=== PATIENT | male | born 1960 | race Caucasian/White ===

== ENCOUNTER 2017-06-21 20:18 | Emergency (ER) | payer BC ==
[2017-06-21] MEDS ORDERED: Sodium Chloride 0.9% 1000 ML 1,000 ML IV STA (20:47)
[2017-06-21] MEDS ORDERED: Zofran 4 MG/2 ML VIAL IV ONE (20:47)
--- NOTE | 2017-06-21 20:50 | ERPHSYRPT ---
- History of Present Illness Time Seen by Provider: 06/21/17 20:34 Source: patient Patient Subjective Stated Complaint: pt states he has been vomiting and feeling bad since saturday. states he has also been having pain in his ears intermittently. Triage Nursing Assessment: pt alert and oriented, answers questions approp. skin pink warm and dry. pt ambultory with steady gait noted. respriations nonlabored with exp wheeze noted throughout. abd soft and nontender to light palpation. Physician History: CC: vomiting Hx: 56 y/o patient of Dr Richardson. He had cough illness around a few weeks ago, with cough better. Earlier this week he had some ear pressure. Nausea saturday. Last night and today he has vomiting. Sharp abd pain right before vomiting. No blood. No diarrhea. Normal urination. No fever or chills. He is healthy. Quit taking his chol pill but is on asa. 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 Allergies/Adverse Reactions: No Known Drug Allergies Allergy (Verified 06/21/17 20:37) Hx Tetanus, Diphtheria Vaccination/Date Given: Yes (2011) Hx Influenza Vaccination/Date Given: Yes (2016) Hx Pneumococcal Vaccination/Date Given: Yes Immunizations Up to Date: Yes - Review of Systems Constitutional: Fatigue, Malaise, Weakness, No Fever, No Chills Eyes: No Symptoms Ears, Nose, & Throat: Ear Pain (pressure), No Throat Pain Respiratory: Cough (gone now) Cardiac: No Chest Pain Abdominal/Gastrointestinal: Abdominal Pain, Nausea, Vomiting, No Diarrhea Genitourinary Symptoms: No Dysuria, No Hematuria, No Flank Pain Musculoskeletal: No Back Pain Skin: No Rash Neurological: No Headache All Other Systems: Reviewed and Negative - Past Medical History Pertinent Past Medical History: Yes Neurological History: No Pertinent History ENT History: No Pertinent History Cardiac History: High Cholesterol Respiratory History: No Pertinent History Endocrine Medical History: No Pertinent History Musculoskeletal History: Fractures GI Medical History: No Pertinent History History: No Pertinent History Psycho-Social History: No Pertinent History Male Reproductive Disorders: No Pertinent History Other Medical History: Hep C in past - Past Surgical History Past Surgical History: Yes Neuro Surgical History: No Pertinent History Cardiac: No Pertinent History Respiratory: No Pertinent History Gastrointestinal: No Pertinent History Genitourinary: No Pertinent History Musculoskeletal: Orthopedic Surgery Male Surgical History: No Pertinent History Other Surgical History: Tonsils removed as child - Social History Smoking Status: Current every day smoker How long have you smoked: 30 Exposure to second hand smoke: Yes Drug Use: none Patient Lives Alone: No - Nursing Vital Signs Nursing Vital Signs: Initial Vital Signs Temperature 98.0 F 06/21/17 20:26 Pulse Rate 96 H 06/21/17 20:26 Respiratory Rate 16 06/21/17 20:26 Blood Pressure 133/91 06/21/17 20:26 O2 Sat by Pulse Oximetry 96 06/21/17 20:26 Pain Scale Pain Intensity 4 - Physical Exam General Appearance: alert Eye Exam: PERRL/EOMI, No scleral icterus Ears, Nose, Throat Exam: normal ENT inspection, moist mucous membranes Neck Exam: normal inspection, supple Respiratory Exam: normal breath sounds Cardiovascular Exam: regular rate/rhythm Gastrointestinal/Abdomen Exam: soft, No tenderness, No distention, No mass, No guarding Male Genitalia Exam: normal genitalia Extremity Exam: normal inspection, normal range of motion, No calf tenderness, No pedal edema Neurologic Exam: alert, oriented x 3, cooperative, sensation nml, No motor deficits Skin Exam: warm, dry, No rash SpO2 Interpretation: normal SpO2: 96 Oxygen Delivery: Room Air - Course Nursing assessment & vital signs reviewed: Yes - Radiology Exams AAS X-ray Interpretation: Interpreted by me (no obstr, no free air, old rib fx, gallstone) Ordered Tests: Active Orders 24 hr Category Date Time Status IV Insertion STAT Care 06/21/17 20:47 Active OBSTR/ACUTE ABDOMEN SERIES Stat Exams 06/21/17 20:47 Taken CBC W DIFF Stat Lab 06/21/17 21:00 Completed CMP Stat Lab 06/21/17 21:00 Completed LIPASE Stat Lab 06/21/17 21:00 Completed UA W/ MICROSCOPIC Stat Lab 06/21/17 21:00 Completed Medication Summary Discontinued Medications Generic Name Dose Route Start Last Admin Trade Name Freq PRN Reason Stop Dose Admin Sodium Chloride 1,000 mls @ 999 mls/hr 06/21/17 20:47 06/21/17 21:30 Sodium Chloride 0.9% 1000 Ml IV 06/21/17 21:47 999 mls/hr .Q1H1M STA Administration Sodium Chloride Confirm 06/21/17 21:27 Sodium Chloride 0.9% 1000 Ml Administered 06/21/17 21:28 Dose 1,000 mls @ ud .ROUTE .STK-MED ONE Ondansetron HCl 4 mg 06/21/17 20:47 06/21/17 21:30 Zofran 4 Mg/2 Ml Vial IV 06/21/17 20:48 4 mg STAT ONE Administration Ondansetron HCl Confirm 06/21/17 21:27 Zofran 4 Mg/2 Ml Vial Administered 06/21/17 21:28 Dose 4 mg .ROUTE .STK-MED ONE Lab/Rad Data: Laboratory Result Diagrams 06/21/17 21:00 06/21/17 21:00 Laboratory Results 06/21/17 06/21/17 06/21/17 Range/Units 21:00 21:00 21:00 WBC 13.5 H (4.0-10.5) K/mm3 RBC 4.86 (4.1-5.6) M/mm3 Hgb 14.4 (12.5-18.0) gm/dl Hct 43.8 (42-50) % MCV 90.1 (78-100) fl MCH 29.6 (26-32) pg MCHC 32.9 (32-36) g/dl RDW 13.4 (11.5-14.0) % Plt Count 291 (150-450) K/mm3 MPV 9.5 (6-9.5) fl Gran % 62.7 (36.0-66.0) % Lymphocytes % 27.1 (24.0-44.0) % Monocytes % 7.9 (0.0-12.0) % Eosinophils % 2.1 (0.00-5.0) % Basophils % 0.2 (0.0-0.4) % Basophils # 0.03 (0-0.4) Sodium 142 (136-145) mEq/L Potassium 3.8 (3.5-5.1) mEq/L Chloride 104 (98-107) mEq/L Carbon Dioxide 30.0 (21-32) mEq/L Anion Gap 11.9 (5-15) MEQ/L BUN 14 (9-20) mg/dL Creatinine 0.85 (0.55-1.30) mg/dl Estimated GFR > 60 ML/MIN Glucose 104 (70-110) MG/DL Calcium 9.4 (8.5-10.1) mg/dL Total Bilirubin 0.60 (0.2-1.0) mg/dL AST 17 (15-37) U/L ALT 23 (12-78) U/L Alkaline Phosphatase 87 (46-116) U/L Serum Total Protein 7.0 (6.4-8.2) gm/dL Albumin 3.5 (3.4-5.0) g/dL Lipase 138 (73-393) U/L Ur Collection Type VOID Urine Color YELLOW (YELLOW) Urine Appearance CLEAR (CLEAR) Urine pH 6.0 (5-6) Ur Specific [place] 1.015 (1.005-1.025) Urine Protein NEGATIVE (Negative) Urine Ketones NEGATIVE (NEGATIVE) Urine Blood TRACE NON-HEM (0-5) Regino/ul Urine Nitrite NEGATIVE (NEGATIVE) Urine Bilirubin NEGATIVE (NEGATIVE) Urine Urobilinogen NORMAL (0-1) mg/dL Ur Leukocyte Esterase NEGATIVE (NEGATIVE) Urine Microscopic RBC 2-5 (0-2) /HPF Urine Microscopic WBC 2-5 (0-5) /HPF Ur Epithelial Cells FEW (FEW) /HPF Urine Bacteria FEW (NEGATIVE) /HPF Urine Mucus SLIGHT (NEGATIVE) /HPF Urine Culture Reflexed NO (NO) Urine Glucose NEGATIVE (NEGATIVE) mg/dL Specimen Received 06/21/17 2030 - Progress Progress Note: 06/21/17 22:18 He feels better after IVF and zofran. No vomiting. No chest or abd pain. Abs soft and NT. Will release with instr. Counseled pt/family regarding: lab results, diagnosis, need for follow-up, rad results - Departure Time of Disposition: 22:19 Departure Disposition: Home Clinical Impression: Vomiting Qualifiers: Vomiting Intractability: unspecified Nausea presence: with nausea Condition: Stable Critical Care Time: No Referrals: SHAYNE RICHARDSON [Primary Care Provider] - Instructions: Vomiting -- Adult Additional Instructions: Take ondansetron on tongue every 6 hours as needed for nausea. [place] diet. Follow up with Dr Richardson next week. Return for high fever, passing blood, uncontrolled vomiting, abdominal pain, or concerns. Prescriptions: Ondansetron ODT 4 MG [Zofran Odt 4 mg] 1 tab PO Q6H PRN PRN #10 tab.rapdis PRN Reason: Nausea/Vomiting
[2017-06-21 21:09] LABS: BASOPHIL % 0.2 % (0.0-0.4); Eosinophil % 2.1 % (0.00-5.0); Granulocytes % 62.7 % (36.0-66.0); Lymphocytes % 27.1 % (24.0-44.0); Mean Cell Volume 90.1 fl (78-100); Mean Corpuscular Hemoglobin 29.6 pg (26-32); Mean Platelet Volume 9.5 fl (6-9.5); Monocytes % 7.9 % (0.0-12.0); Platelet Count 291 K/mm3 (150-450); Red Blood Count 4.86 M/mm3 (4.1-5.6); Red Cell Distribution Width 13.4 % (11.5-14.0); White Blood Count 13.5 K/mm3 (4.0-10.5)
[2017-06-21] MEDS ORDERED: Zofran 4 MG/2 ML VIAL ONE (21:27)
[2017-06-21] MEDS ORDERED: Sodium Chloride 0.9% 1000 ML 1,000 ML ONE (21:27)
[2017-06-21 21:33] LABS: ALBUMIN 3.5 g/dL (3.4-5.0); ALKALINE PHOSPHATASE 87 U/L (46-116); ANION GAP 11.9 MEQ/L (5-15); BLOOD UREA NITROGEN 14 mg/dL (9-20); CHLORIDE 104 mEq/L (98-107); Glucose 104 MG/DL (70-110); LIPASE 138 U/L (73-393); Potassium 3.8 mEq/L (3.5-5.1); SGOT/AST 17 U/L (15-37); SGPT/ALT 23 U/L (12-78); SODIUM 142 mEq/L (136-145)
[2017-06-21 21:46] LABS: Bilirubin NEGATIVE (NEGATIVE); Collection Type VOID; Glucose NEGATIVE (NEGATIVE); Leukocyte Esterase NEGATIVE (NEGATIVE)
[2017-06-21 21:47] LABS: ADD URINE CULTURE? NO (NO); Bacteria FEW /HPF (NEGATIVE); Blood TRACE NON-HEM Ery/ul (0-5); COMPLETE URINE MICROSCOPIC? YES; Epithelial Cells FEW /HPF (FEW); Mucus SLIGHT /HPF (NEGATIVE)
[2017-06-21] MEDS ORDERED: ZOFRAN ODT 4 MG PO ONE (22:17)
[2017-06-21 22:26] VITALS: BP 124/83; PULSE 75; O2SAT 97
[2017-06-21] MEDS ORDERED: ZOFRAN ODT 4 MG ONE (22:32)
--- NOTE | 2017-06-22 07:41 | XRAY ---
Indication: Cough, vomiting, and abdominal pain. Comparison: Chest exam November 05, 2007. 2 views of the abdomen demonstrates nonspecific nonobstructed bowel gas pattern. 2 cm gallstone. Remaining solid organs are unremarkable. Osseous structures intact with mild spinal degenerative changes. Single frontal chest demonstrates minimal left base atelectasis/scarring. Remaining lungs clear. Heart is not enlarged. Bony thorax intact. Impression: 1. Gallstone better evaluated with ultrasound if clinically warranted. 2. Nonobstructed abdomen. 3. Nonacute one view chest.
== END 2017-06-21 22:46 | disposition home or self-care (01) ==
LOC: ED 20:18
DX: R11.2 Nausea with vomiting, unspecified (principal); R53.83 Other fatigue; R10.9 Unspecified abdominal pain
CPT/HCPCS: 36000; 36415; 74022; 80053; 81000; 83690; 85025; 96360; 96374; 99284; J2405; Q0162